=== PATIENT | female | born 1960 | race African-American/Black ===

== ENCOUNTER 2025-04-27 23:33 | Emergency (ER) | payer MEDICAID ==
[~2025-04-27] VITALS: Ht 167.6 cm; Wt 63.0 kg
[2025-04-27 23:42] VITALS: O2SAT 98
[2025-04-28] MEDS: KETOROLAC 15MG/ML VIAL IM ONE (00:15)
[2025-04-28] MEDS ORDERED: ALPRAZOLAM 0.5 MG TABLET PO ONE (01:00)
[2025-04-28] MEDS: ALPRAZOLAM 0.25 MG TABLET PO NR (01:15)
[2025-04-28 02:25] VITALS: BP 155/94; PULSE 79; RESP 17; TEMP 36.8; O2SAT 98
== END 2025-04-28 02:27 | disposition home or self-care (01) ==
LOC: ER 23:33
DX: M54.50 Low back pain, unspecified (principal); I10 Essential (primary) hypertension; Z88.0 Allergy status to penicillin; Z88.2 Allergy status to sulfonamides; Z88.5 Allergy status to narcotic agent
CPT/HCPCS: 99285; 72131; 96372; J1885